=== PATIENT | male | born 1990 | race Two or more races ===

== ENCOUNTER 2022-03-04 23:20 | Emergency (ER) | payer OTHER ==
[~2022-03-04] VITALS: Ht 177.8 cm; Wt 86.3 kg
[2022-03-05] MEDS ORDERED: AMOX500T86 PO ×2 (03:35→03:36)
[2022-03-05] MEDS ORDERED: IBUP600T28 PO ×2 (03:35→03:36)
[2022-03-05] MEDS ORDERED: HYDR-4798 PO (03:37)
[2022-03-05 03:44] VITALS: BP 145/54
== END 2022-03-05 03:56 | disposition home or self-care (01) ==
LOC: ER 23:20 → EEVIPCON 23:20 → ER 03-05 03:56
DX: S02.40CA Maxillary fracture, right side, initial encounter for closed fracture (principal); S02.831A Fracture of medial orbital wall, right side, initial encounter for closed fracture; S00.11XA Contusion of right eyelid and periocular area, initial encounter; S02.2XXA Fracture of nasal bones, initial encounter for closed fracture; Z65.3 Problems related to other legal circumstances; X58.XXXA Exposure to other specified factors, initial encounter; Y93.89 Activity, other specified; Y92.89 Other specified places as the place of occurrence of the external cause; Y99.8 Other external cause status; Y04.0XXA Assault by unarmed brawl or fight, initial encounter
CPT/HCPCS: 70450; 70486; 72125